=== PATIENT | female | born 1965 | race Caucasian/White ===

== ENCOUNTER 2016-01-27 09:15 | Outpatient (RCR) | payer BC ==
[2016-01-27 09:22] LABS: MEAN CORPUSCULAR HGB CONC 32.6 g/dL (31.0-37.0); MEAN CORPUSCULAR VOLUME 86 FL (80-100); MEAN PLATELET VOLUME 9.2 FL (6.0-9.5); PLATELET COUNT 202 10^3uL (150-450); WHITE BLOOD COUNT 5.48 10^3uL (4.0-11.0)
[2016-01-27 09:32] LABS: BAND NEUTROPHILS % 17 % (0-6); EOSINOPHILS % 1 % (0-4); LYMPHOCYTES # 0.1 #; MONOCYTES % 0 % (3-11); RBC MORPH NORMAL (NORMAL); SEGMENTED NEUTROPHILS % 80 % (51-67); TOTAL CELLS COUNTED 100
[2016-01-27 10:04] LABS: ANION GAP 14.7 MEQ/L (3-15)
[2016-01-27 10:05] LABS: ALBUMIN 3.8 g/dL (3.4-5.0); CALCULATED IONIZED CALCIUM 3.8 mg/dL (3.8-4.6); MAGNESIUM* 2.2 mg/dL (1.6-2.3); PHOSPHORUS 4.6 mg/dL (2.4-4.9); TOTAL PROTEIN 7.9 g/dL (6.4-8.5)
[2016-02-17 09:31] LABS: MEAN CORPUSCULAR HGB CONC 31.9 g/dL (31.0-37.0); MEAN CORPUSCULAR VOLUME 84 FL (80-100); MEAN PLATELET VOLUME 10.9 FL (6.0-9.5); PLATELET COUNT 155 10^3uL (150-450); WHITE BLOOD COUNT 5.42 10^3uL (4.0-11.0)
[2016-02-17 09:55] LABS: MEAN CORPUSCULAR HEMOGLOBIN 26.7 PG (26.0-34.0)
[2016-02-17 10:11] LABS: BAND NEUTROPHILS % 0 % (0-6); LYMPHOCYTES # 1.9 #; SEGMENTED NEUTROPHILS % 58 % (51-67)
[2016-02-17 10:12] LABS: EOSINOPHILS % 2 % (0-4); MONOCYTES # 0.3 #; MONOCYTES % 5 % (3-11); RBC MORPH NORMAL (NORMAL); TOTAL CELLS COUNTED 100
[2016-02-25 08:19] LABS: MEAN CORPUSCULAR HGB CONC 32.5 g/dL (31.0-37.0); MEAN CORPUSCULAR VOLUME 80 FL (80-100); MEAN PLATELET VOLUME 9.7 FL (6.0-9.5); PLATELET COUNT 173 10^3uL (150-450); WHITE BLOOD COUNT 4.05 10^3uL (4.0-11.0)
[2016-02-25 08:27] LABS: MEAN CORPUSCULAR HEMOGLOBIN 26.1 PG (26.0-34.0)
[2016-02-25 08:35] LABS: BAND NEUTROPHILS % 0 % (0-6); EOSINOPHILS % 5 % (0-4); LYMPHOCYTES # 1.7 #; MONOCYTES % 1 % (3-11); RBC MORPH NORMAL (NORMAL); SEGMENTED NEUTROPHILS % 50 % (51-67); TOTAL CELLS COUNTED 100
[2016-03-03 09:49] LABS: MEAN CORPUSCULAR VOLUME 81 FL (80-100); MEAN PLATELET VOLUME 9.5 FL (6.0-9.5); PLATELET COUNT 161 10^3uL (150-450); WHITE BLOOD COUNT 4.86 10^3uL (4.0-11.0)
[2016-03-03 09:58] LABS: MEAN CORPUSCULAR HEMOGLOBIN 25.7 PG (26.0-34.0); MEAN CORPUSCULAR HGB CONC 31.6 g/dL (31.0-37.0)
[2016-03-03 10:12] LABS: ALBUMIN 3.4 g/dL (3.4-5.0); ANION GAP 11.9 MEQ/L (3-15); CALCULATED IONIZED CALCIUM 4.4 mg/dL (3.8-4.6); MAGNESIUM* 2.2 mg/dL (1.6-2.3); PHOSPHORUS 3.7 mg/dL (2.4-4.9); TOTAL PROTEIN 5.8 g/dL (6.4-8.5)
[2016-03-03 10:28] LABS: BAND NEUTROPHILS % 0 % (0-6); EOSINOPHILS % 0 % (0-4); LYMPHOCYTES # 0.9 #; MONOCYTES # 0.2 #; MONOCYTES % 4 % (3-11); SEGMENTED NEUTROPHILS % 78 % (51-67); TOTAL CELLS COUNTED 100
[2016-03-03 10:29] LABS: RBC MORPH NORMAL (NORMAL)
[2016-03-09 09:38] LABS: MEAN CORPUSCULAR HGB CONC 31.8 g/dL (31.0-37.0); MEAN CORPUSCULAR VOLUME 81 FL (80-100); MEAN PLATELET VOLUME 10.4 FL (6.0-9.5); PLATELET COUNT 136 10^3uL (150-450); WHITE BLOOD COUNT 3.84 10^3uL (4.0-11.0)
[2016-03-09 09:44] LABS: MEAN CORPUSCULAR HEMOGLOBIN 25.7 PG (26.0-34.0)
[2016-03-09 09:45] LABS: BAND NEUTROPHILS % 0 % (0-6); EOSINOPHILS % 0 % (0-4); LYMPHOCYTES # 0.7 #; MONOCYTES # 0.1 #; MONOCYTES % 4 % (3-11); RBC MORPH NORMAL (NORMAL); SEGMENTED NEUTROPHILS % 77 % (51-67); TOTAL CELLS COUNTED 100
[2016-03-16 09:39] LABS: MEAN CORPUSCULAR HGB CONC 31.8 g/dL (31.0-37.0); MEAN PLATELET VOLUME 9.5 FL (6.0-9.5); PLATELET COUNT 170 10^3uL (150-450); WHITE BLOOD COUNT 2.88 10^3uL (4.0-11.0)
[2016-03-16 09:43] LABS: MEAN CORPUSCULAR HEMOGLOBIN 25.2 PG (26.0-34.0); MEAN CORPUSCULAR VOLUME 79 FL (80-100)
[2016-03-16 10:05] LABS: BAND NEUTROPHILS % 1 % (0-6); EOSINOPHILS % 0 % (0-4); LYMPHOCYTES # 1.2 #; MONOCYTES % 1 % (3-11); SEGMENTED NEUTROPHILS % 57 % (51-67); TOTAL CELLS COUNTED 100
[2016-03-16 10:06] LABS: RBC MORPH NORMAL (NORMAL)
[2016-03-23 09:34] LABS: MEAN CORPUSCULAR HEMOGLOBIN 25.4 PG (26.0-34.0); MEAN CORPUSCULAR HGB CONC 31.9 g/dL (31.0-37.0); MEAN CORPUSCULAR VOLUME 80 FL (80-100); MEAN PLATELET VOLUME 9.1 FL (6.0-9.5); PLATELET COUNT 149 10^3uL (150-450); WHITE BLOOD COUNT 3.92 10^3uL (4.0-11.0)
[2016-03-23 10:21] LABS: BAND NEUTROPHILS % 2 % (0-6); EOSINOPHILS % 3 % (0-4); MONOCYTES # 0.2 #; MONOCYTES % 6 % (3-11); SEGMENTED NEUTROPHILS % 36 % (51-67); TOTAL CELLS COUNTED 100
[2016-03-23 10:22] LABS: ANISOCYTOSIS SLIGHT; RBC MORPH SEE REFERENCE (NORMAL)
[2016-03-30 09:26] LABS: MEAN CORPUSCULAR HGB CONC 31.8 g/dL (31.0-37.0); MEAN CORPUSCULAR VOLUME 80 FL (80-100); MEAN PLATELET VOLUME 10.4 FL (6.0-9.5); PLATELET COUNT 195 10^3uL (150-450); WHITE BLOOD COUNT 4.67 10^3uL (4.0-11.0)
[2016-03-30 09:27] LABS: MEAN CORPUSCULAR HEMOGLOBIN 25.4 PG (26.0-34.0)
[2016-03-30 09:38] LABS: ANISOCYTOSIS SLIGHT; BAND NEUTROPHILS % 0 % (0-6); EOSINOPHILS % 0 % (0-4); LYMPHOCYTES # 1.3 #; MONOCYTES # 0.1 #; MONOCYTES % 3 % (3-11); RBC MORPH SEE REFERENCE (NORMAL); SEGMENTED NEUTROPHILS % 67 % (51-67); TOTAL CELLS COUNTED 100
[2016-03-30 09:41] LABS: ALBUMIN 3.5 g/dL (3.4-5.0); ANION GAP 12.4 MEQ/L (3-15); CALCULATED IONIZED CALCIUM 4.1 mg/dL (3.8-4.6); MAGNESIUM* 2.3 mg/dL (1.6-2.3); PHOSPHORUS 4.1 mg/dL (2.4-4.9); TOTAL PROTEIN 6.6 g/dL (6.4-8.5)
[2016-04-06 08:19] LABS: MEAN CORPUSCULAR VOLUME 80 FL (80-100); MEAN PLATELET VOLUME 10.3 FL (6.0-9.5); PLATELET COUNT 154 10^3uL (150-450); WHITE BLOOD COUNT 3.04 10^3uL (4.0-11.0)
[2016-04-06 08:38] LABS: MEAN CORPUSCULAR HEMOGLOBIN 25.5 PG (26.0-34.0)
[2016-04-06 08:44] LABS: BAND NEUTROPHILS % 1 % (0-6); EOSINOPHILS % 0 % (0-4); LYMPHOCYTES # 2.3 #; MONOCYTES # 0.1 #; MONOCYTES % 3 % (3-11); RBC MORPH NORMAL (NORMAL); SEGMENTED NEUTROPHILS % 21 % (51-67); TOTAL CELLS COUNTED 100
[2016-04-13 09:15] LABS: MEAN CORPUSCULAR VOLUME 81 FL (80-100); MEAN PLATELET VOLUME 10.1 FL (6.0-9.5); PLATELET COUNT 126 10^3uL (150-450); WHITE BLOOD COUNT 8.05 10^3uL (4.0-11.0)
[2016-04-13 09:20] LABS: MEAN CORPUSCULAR HEMOGLOBIN 25.8 PG (26.0-34.0)
[2016-04-13 09:24] LABS: ANISOCYTOSIS MODERATE; BAND NEUTROPHILS % 11 % (0-6); EOSINOPHILS % 0 % (0-4); LYMPHOCYTES # 3.5 #; MONOCYTES # 0.4 #; MONOCYTES % 5 % (3-11); RBC MORPH SEE REFERENCE (NORMAL); SEGMENTED NEUTROPHILS % 37 % (51-67); TOTAL CELLS COUNTED 100
[2016-04-20 09:15] LABS: MEAN CORPUSCULAR HGB CONC 33.3 g/dL (31.0-37.0); MEAN PLATELET VOLUME 11.6 FL (6.0-9.5); PLATELET COUNT 121 10^3uL (150-450); WHITE BLOOD COUNT 4.71 10^3uL (4.0-11.0)
[2016-04-20 09:35] LABS: MEAN CORPUSCULAR VOLUME 78 FL (80-100)
[2016-04-20 09:39] LABS: BAND NEUTROPHILS % 1 % (0-6); EOSINOPHILS % 0 % (0-4); MONOCYTES # 0.1 #; MONOCYTES % 2 % (3-11)
[2016-04-20 09:41] LABS: RBC MORPH NORMAL (NORMAL); SEGMENTED NEUTROPHILS % 33 % (51-67); TOTAL CELLS COUNTED 100
== END 2016-04-26 | disposition home or self-care (01) ==
LOC: LAB 09:15
PROVIDERS: ATTEND Internal Medicine Hematology & Oncology
DX: C18.7 Malignant neoplasm of sigmoid colon (principal); D70.1 Agranulocytosis secondary to cancer chemotherapy
CPT/HCPCS: 36415; 80053; 82378; 83615; 83735; 84100; 84443; 85007; 85027

== ENCOUNTER 2016-04-27 09:23 | Outpatient (RCR) | payer BC ==
[~2016-04-27 09:23] MED LIST: CEFA500C PO; GBPN300C; HYDR-3702 PO; LANS30CA PO; LANS30CA14 PO; ONDA-50 PO; ONDA4TAB8 PO; PRM50SU PR; RIVA20TA; TRM50T PO
[2016-04-27 09:53] LABS: MEAN CORPUSCULAR HEMOGLOBIN 26.3 PG (26.0-34.0); MEAN CORPUSCULAR HGB CONC 31.5 g/dL (31.0-37.0); MEAN CORPUSCULAR VOLUME 84 FL (80-100); MEAN PLATELET VOLUME 9.8 FL (6.0-9.5); PLATELET COUNT 157 10^3uL (150-450); WHITE BLOOD COUNT 3.08 10^3uL (4.0-11.0)
[2016-04-27 10:04] LABS: ALBUMIN 3.4 g/dL (3.4-5.0); ANION GAP 11.2 MEQ/L (3-15); CALCULATED IONIZED CALCIUM 4.1 mg/dL (3.8-4.6); TOTAL PROTEIN 6.5 g/dL (6.4-8.5)
[2016-04-27 10:07] LABS: BAND NEUTROPHILS % 0 % (0-6); EOSINOPHILS % 5 % (0-4); LYMPHOCYTES # 1.2 #; MONOCYTES # 0.1 #; MONOCYTES % 4 % (3-11); SEGMENTED NEUTROPHILS % 51 % (51-67); TOTAL CELLS COUNTED 100
[2016-04-27 10:11] LABS: ANISOCYTOSIS MODERATE; RBC MORPH SEE REFERENCE (NORMAL)
[2016-05-04 09:55] LABS: MEAN CORPUSCULAR HGB CONC 32.2 g/dL (31.0-37.0); MEAN CORPUSCULAR VOLUME 81 FL (80-100); MEAN PLATELET VOLUME 10.1 FL (6.0-9.5); PLATELET COUNT 221 10^3uL (150-450); WHITE BLOOD COUNT 5.06 10^3uL (4.0-11.0)
[2016-05-04 09:59] LABS: MEAN CORPUSCULAR HEMOGLOBIN 25.9 PG (26.0-34.0)
[2016-05-04 10:41] LABS: ANISOCYTOSIS MODERATE; BAND NEUTROPHILS % 1 % (0-6); EOSINOPHILS % 2 % (0-4); LYMPHOCYTES # 1.4 #; MONOCYTES # 0.3 #; MONOCYTES % 5 % (3-11); RBC MORPH SEE REFERENCE (NORMAL); SEGMENTED NEUTROPHILS % 64 % (51-67); TOTAL CELLS COUNTED 100
[2016-05-11 10:17] LABS: MEAN CORPUSCULAR VOLUME 83 FL (80-100); MEAN PLATELET VOLUME 10.6 FL (6.0-9.5); PLATELET COUNT 163 10^3uL (150-450)
[2016-05-11 10:21] LABS: MEAN CORPUSCULAR HEMOGLOBIN 25.4 PG (26.0-34.0); MEAN CORPUSCULAR HGB CONC 30.7 g/dL (31.0-37.0)
[2016-05-11 10:33] LABS: ALBUMIN 3.4 g/dL (3.4-5.0); CALCULATED IONIZED CALCIUM 4.3 mg/dL (3.8-4.6); MAGNESIUM* 2.1 mg/dL (1.6-2.3); TOTAL PROTEIN 6.3 g/dL (6.4-8.5)
[2016-05-11 10:38] LABS: BAND NEUTROPHILS % 1 % (0-6); EOSINOPHILS % 0 % (0-4); HYPOCHROMASIA SLIGHT; MONOCYTES # 0.1 #; MONOCYTES % 2 % (3-11); RBC MORPH SEE REFERENCE (NORMAL); SEGMENTED NEUTROPHILS % 55 % (51-67); TOTAL CELLS COUNTED 100
[2016-05-11 10:39] LABS: ANISOCYTOSIS MODERATE
[2016-07-01] MEDS ORDERED: PREG150C PO (08:44)
== END 2016-07-26 | disposition home or self-care (01) ==
LOC: LAB 09:23
PROVIDERS: ATTEND Internal Medicine Hematology & Oncology
DX: C18.7 Malignant neoplasm of sigmoid colon (principal); D70.1 Agranulocytosis secondary to cancer chemotherapy
CPT/HCPCS: 36415; 80053; 82378; 83615; 83735; 84100; 85007; 85027

== ENCOUNTER → 2016-05-06 | Outpatient (CLI) | payer BC | LOC: RAD 07:50 | PROVIDERS: ATTEND Internal Medicine Hematology & Oncology | DX: C18.7 Malignant neoplasm of sigmoid colon (principal); D70.1 Agranulocytosis secondary to cancer chemotherapy; K42.9 Umbilical hernia without obstruction or gangrene | CPT/HCPCS: 71260; 74178; Q9967 ==

== ENCOUNTER → 2016-06-16 | Outpatient (CLI) | payer BC ==
--- NOTE | 2016-06-16 09:41 | Diagnostic Imaging Report ---
INDICATION: Abdominal pain, history of colon cancer. TECHNIQUE: A CT of the abdomen and pelvis was obtained with pre and post IV contrast images. COMPARISON: 05/06/2016. FINDINGS: The visualized portions of the lung bases are clear. There are no pleural fluid collections. There is no free intraperitoneal air. The liver shows evidence of previous partial hepatectomy with a similar appearance to the previous study. There is a small hypodense area in the right lobe at the surgical margin, about the same as on the prior study, measuring about 2.1 cm. This finding is of questionable significance and may be post operative in nature. The adrenal glands and kidneys appear unremarkable. A small area of decreased attenuation in the spleen is again noted which may be a small cyst. This is also stable compared to the prior study. There is a hiatal hernia noted. There is no pancreatic lesion. The retroperitoneum shows no adenopathy. There is an umbilical hernia containing fat. There are no loops of bowel within the hernia. The visualized bowel loops show no overt obstruction or bowel wall thickening. IMPRESSION: Post operative changes in the liver post partial hepatectomy. Stable small area of hypodensity along the surgical margin which is of questionable significance. A tiny questionable cyst in the spleen is also stable. There is a small hiatal hernia. There is a fat-containing umbilical hernia. There is no sign of bowel obstruction, bowel wall thickening, or acute change compared to the previous study. The report was faxed to the office of Dr. Darrell Lane by JEREL at 9:45 AM. Dictated by: Dictated on workstation # [id number]
== END ==
LOC: RAD 07:59
PROVIDERS: ATTEND Internal Medicine Hematology & Oncology
DX: C18.7 Malignant neoplasm of sigmoid colon (principal); R10.9 Unspecified abdominal pain; Z98.890 Other specified postprocedural states; K44.9 Diaphragmatic hernia without obstruction or gangrene
CPT/HCPCS: 74178; Q9967

== ENCOUNTER 2016-07-01 08:18 | Day surgery (SDC) | payer BC ==
[~2016-07-01] VITALS: Ht 160 cm; Wt 105.0 kg
[~2016-07-01 08:18] MED LIST changes: +LACTATED RINGERS 1,000 ML IV SCH; +LIDOCAINE/EPINEPHRINE 1% 1:100,000 (XYLOCAINE) 30 ML VIAL INJ ONE; +SODIUM CHLORIDE FLUSH 10 ML SYR IV PRN; +SODIUM CHLORIDE FLUSH 3 ML SYR IV SCH; +ceFAZolin 2,000 MG in SODIUM CHLORIDE VIAL (PF) 20 ML IV SCH
[2016-07-01 08:30] VITALS: BP 159/92
[2016-07-01] MEDS ORDERED: PREG150C PO (08:44)
[2016-07-01] MEDS ORDERED: ALFENTANIL 500 MCG/ML (ALFENTA) 5 ML AMP IV ONE (09:01)
[2016-07-01] MEDS ORDERED: MIDAZOLAM 2 MG/2 ML (VERSED) VIAL ONE (09:01)
[2016-07-01] MEDS ORDERED: PROPOFOL 20 ML IV ONE (09:01)
[2016-07-01] MEDS ORDERED: PROPOFOL 40 ML IV ONE (10:32)
[2016-07-01 11:30] VITALS: BP 143/85
[2016-07-01] MEDS ORDERED: METOCLOPRAMIDE 10 MG/2 ML (REGLAN) VIAL IV PRN (11:45)
[2016-07-01] MEDS ORDERED: ONDANSETRON 2 MG/ML (Z0FRAN) 2 ML VIAL IV PRN (11:45)
[2016-07-01] MEDS ORDERED: morphine INJ 4 MG/ML 1 ML SYRINGE IV PRN (11:45)
[2016-07-01 12:04] VITALS: BP 132/72
[2016-07-01 12:20] VITALS: BP 132/72
--- NOTE | 2016-07-01 12:56 | OPERATIVE REPORT ---
DATE OF OPERATION: 07/01/2016 PRE-OPERATIVE DIAGNOSIS: 1. Indwelling left subclavian PowerPort. 2. Periumbilical trocar site hernia. POST-OPERATIVE DIAGNOSIS: 1. Indwelling left subclavian PowerPort. 2. Periumbilical trocar site hernia. OPERATIVE PROCEDURE: 1. Removal of left subclavian PowerPort. 2. Repair of periumbilical incisional hernia with mesh. SURGEON: Joselo Quintero MD BOILER FIREMAN: Kacie Paez RN FA ANESTHESIA: Monitored anesthesia care with local INDICATIONS: The patient is a 50-year-old referred by Dr. Lane for removal of a PowerPort, as well as repair of a trocar site hernia that she developed after a colectomy for colon cancer last year. She presents today for these procedures. DESCRIPTION OF PROCEDURE: The patient was informed of the risks and benefits and agreed to proceed. She was administered preoperative IV antibiotics and then taken to the operating room. There she was placed supine on a standard operating table and administered IV sedation. When properly sedated, her left upper chest was prepped and draped in standard sterile fashion. Then 1% lidocaine with epinephrine was injected in the skin around the previous port scar below the left clavicle. The #15 blade scalpel was used to open the skin about 3 cm and dissection was carried forth with the Metzenbaum scissors to expose the underlying port and catheter. The catheter was brought up out of the incision with some tension, so I did have to give a few gentle tugs to get it to come loose. There was no significant bleeding from the tract. The capsule around the port was then freed using electrocautery and sharp dissection with the scalpel. The Prolene sutures, holding the port in place, were removed. The port was removed and the capsule was excised as well. Hemostasis was rendered complete with electrocautery and there was still no bleeding from the catheter tract. The subcutaneous tissue was reapproximated with interrupted 3-0 Vicryl and the skin was closed with subcuticular 4-0 Monocryl. Dressings were applied. Attention was then turned to the umbilical hernia repair. The abdomen was prepped and draped in standard sterile fashion. Lidocaine was injected around the previous vertical scar above the umbilicus from her camera trocar site from the laparoscopy last year. The scar was excised with the #15 blade scalpel leaving an incision about 5 cm in length. Dissection was carried forth with the Metzenbaum scissors and cautery through the subcutaneous tissue. Blunt dissection was then used to expose the underlying hernia sac, which could be seen emanating from a defect superior to the umbilicus and separate from it. The sac was cleared of adhesions and dissected free, but it was difficult to keep it reduced due to the patient's breathing. I elected to excise this sac and this was done with the Metzenbaum scissors at the level of the fascia. The defect was approximately 2 cm in diameter. The contents of the sac consisted of omentum, which was easily reduced back into the peritoneal cavity. There was adequate space for placement of mesh in the peritoneal cavity below the defect. A 6 cm Ventralex patch was placed in this location and then the defect was closed transversely with interrupted 2-0 Prolene sutures incorporating the 3 middle sutures into the mesh to secure it in place. These were tied to repair the defect. The subcutaneous tissue was reapproximated in two separate layers with 3-0 Vicryl. The skin was closed with interrupted 3-0 Ethilon and dressings were applied. The patient tolerated the procedure without complications.
[2016-07-01 13:15] VITALS: BP 138/80
[2016-07-01] MEDS ORDERED: IBUPROFEN 800 MG (MOTRIN) TAB PO ONE (13:25)
--- NOTE | 2016-07-01 13:34 | NUR ---
patients pain not controlled by oral meds given at noon. Dr. Quintero notifed that pain is still at a 5 on a 0-10 scale and patient unable to stand upright to walk to bathroom. Iv was removed with tip in tact. Dr. Quintero ordered pain meds and those were administered.
[2016-07-01 13:42] VITALS: BP 136/84
== END 2016-07-01 14:00 | disposition home or self-care (01) ==
LOC: ASC 08:18
PROVIDERS: ATTEND Surgery
DX: K43.2 Incisional hernia without obstruction or gangrene (principal); Z45.2 Encounter for adjustment and management of vascular access device; Z85.038 Personal history of other malignant neoplasm of large intestine; Z90.49 Acquired absence of other specified parts of digestive tract; K21.9 Gastro-esophageal reflux disease without esophagitis; Z79.02 Long term (current) use of antithrombotics/antiplatelets; Z86.718 Personal history of other venous thrombosis and embolism
CPT/HCPCS: 36590; 49560; 49568; C1781; J2250; J7120